=== PATIENT | male | born 1970 | race Caucasian/White ===

== ENCOUNTER → 2024-02-18 | Day surgery (SDC) | payer BC ==
[2024-02-11 13:37] VITALS: BMI 25.0
[~2024-02-18] MED LIST: LACTATED RINGERS 1,000 ML IV SCH; LIDOCAINE 1% (10MG/ML) FOR IV START INTRADERMA PRN; LIDOCAINE 1% INJ 10MG/ML (20 ML MDV) ONE; PROPOFOL 10 MG/ML 20 ML VIAL IV ONE
[2024-02-18 14:42] VITALS: TEMP 97.5
[2024-02-18] MEDS: IV FLUID CONTINUATION 1,000 ML IV ONE ×2 (14:51→15:26)
--- NOTE | 2024-02-18 15:41 | P.PCN ---
Date of Procedure: 02/18/24 Procedure(s) Performed: BRIEF HISTORY: Patient is a 53-year-old, pleasant, white male scheduled for an upper endoscopy as a part evaluation of longstanding history of GERD and Cornejo's esophagus. Last EGD was 3 years ago. PROCEDURE PERFORMED: Esophagogastroduodenoscopy with biopsy. PREOPERATIVE DIAGNOSIS: Longstanding history of GERD/Cornejo's. IV sedation per anesthesia. PROCEDURE: After informed consent was obtained, the patient was brought into the endoscopy unit. IV sedation was administered by Anesthesia under continuous monitoring. Initially the Olympus GIF-140 video endoscope was inserted into the mouth. Esophagus intubated without any difficulty. It was gradually advanced into the stomach and duodenum and carefully examined. The bulb and the second part of the duodenum appeared normal. The scope at this time was withdrawn to the stomach, adequately insufflated with air, and upon careful examination, mucosa of the antrum, body, cardia and the fundus appeared normal. Multiple gastric polyps 5 mm to 1 cm in size noted in the body and fundus of the stomach which were biopsied. The scope was then withdrawn into the esophagus. Hiatal hernia noted. There was a 2 mm island of Cornejo's appearing mucosa just proximal to the GE junction that was biopsied. The GE junction was located at 35 cm from the incisors. The esophagus appeared normal. There were no erosions or ulcerations seen and the patient tolerated the procedure well. IMPRESSION: 1. 2 mm island of Cornejo's appearing mucosa just proximal to the GE junction status post biopsy 2. Small hiatal hernia 3.. Multiple gastric polyps. RECOMMENDATIONS: The findings of this examination were discussed with the p atient as well as his family. He was advised to follow-up with the biopsy results.He can continue with omeprazole 20 mg daily and follow antireflux measures.. The biopsy confirms the presence of Cornejo's esophagus recommend a repeat upper endoscopy in 3 years.
[2024-02-18 16:10] VITALS: BP 130/79; PULSE 52; RESP 12
== END ==
LOC: ORWHC2ENDO 13:17
PROVIDERS: ATTEND Internal Medicine Gastroenterology
DX: K31.7 Polyp of stomach and duodenum (principal); K21.9 Gastro-esophageal reflux disease without esophagitis; K44.9 Diaphragmatic hernia without obstruction or gangrene; Z79.899 Other long term (current) drug therapy
CPT/HCPCS: 88305; 43239; J2003; J2704